=== PATIENT | male | born 1950 | race Caucasian/White ===

== ENCOUNTER 2021-12-09 13:31 | Inpatient (IN) | payer OTHER, BC ==
[~2021-12-09] VITALS: Ht 170.2 cm; Wt 77.2 kg
[2021-12-09] MEDS: ASCORBIC ACID 250 MG TAB PO SCH (09:00)
[2021-12-09] MEDS ORDERED: MORPHINE 2 MG/ML 1ML VIAL IV PRN ×2 (13:55→16:15)
[2021-12-09] MEDS ORDERED: BOOSTRIX/ADACEL VACCINE (DIPHTH/PERTUSS/ACELL/TETANUS) 0.5ML SYR IM.IMMUN ONE (14:00)
[2021-12-09 14:29] LABS: BASO % 0.3 % (0.0-1.0); EOS % 0.3 % (0.0-3.0); HEMATOCRIT 44.2 % (42.0-52.0); HEMOGLOBIN 14.6 g/dl (13.5-17.5); LYMPH % 12.5 % (24.0-44.0); MEAN CORPUSCULAR HEMOGLOBIN 30.9 pg (27.0-33.0); MEAN CORPUSCULAR VOLUME 93.4 fl (80.0-96.0); MONO # 0.7 10^3/uL (0.0-0.8); NEUTROPHILS # 5.8 10^3/uL (1.5-8.5); NEUTROPHILS % 74.7 % (36.0-66.0); PLATELET COUNT, AUTOMATED 208 10^3/uL (150-450); RED BLOOD COUNT 4.73 10^6/uL (4.30-6.10); WHITE BLOOD COUNT 7.8 10^3/uL (4.0-10.0)
[2021-12-09] MEDS ORDERED: ISOVUE-370 76% 100ML VIAL As Ordered ONE (14:30)
[2021-12-09 14:43] LABS: INR 1.05; PROTHROMBIN TIME 14.1 SECONDS (12.7-14.5)
[2021-12-09 14:44] LABS: PARTIAL THROMBOPLASTIN TIME 32.4 SECONDS (25.9-37.0)
[2021-12-09 15:03] LABS: ALBUMIN 4.3 GM/DL (3.2-5.2); ALT/SGPT 36 U/L (12-78); BILIRUBIN,DIRECT 0.2 MG/DL (0.0-0.2); BILIRUBIN,TOTAL 0.9 MG/DL (0.2-1.0); BLOOD UREA NITROGEN 16 MG/DL (7-18); CALCIUM LEVEL 9.1 MG/DL (8.8-10.2); CARBON DIOXIDE LEVEL 26 MEQ/L (21-32); CHLORIDE LEVEL 106 MEQ/L (98-107); CREATININE FOR GFR 0.86 MG/DL (0.70-1.30); ETHYL ALCOHOL (ETHANOL) < 0.003 % (0.000-0.010); GLOMERULAR FILTRATION RATE > 60.0 (>42); GLUCOSE, FASTING 102 MG/DL (70-100); POTASSIUM SERUM 4.1 MEQ/L (3.5-5.1); SODIUM LEVEL 138 MEQ/L (136-145); TOTAL PROTEIN 7.5 GM/DL (6.4-8.2)
[2021-12-09 15:05] LABS: CK-MB VALUE MASS 5.3 NG/ML (<3.6); MB/CK RELATIVE INDEX 2.09 (< OR =4)
[2021-12-09] MEDS ORDERED: NORCO, ANEXSIA 5/325MG TABLET (HYDROcodone/ACETAMINOPHEN) PO PRN (16:15)
[2021-12-09] MEDS ORDERED: ATOR1TAB21 PO (16:32)
[2021-12-09] MEDS ORDERED: ELIQ5TAB PO (16:32)
[2021-12-09] MEDS ORDERED: AMIO200T49 PO (16:32)
[2021-12-09] MEDS ORDERED: D-10TAB3 PO (16:32)
[2021-12-09] MEDS ORDERED: VITA250T4 PO (16:32)
[2021-12-09] MEDS ORDERED: HOME MED LIST COMPLETE! XX SCH (16:40)
[2021-12-09 17:34] LABS: RSV AMPLIFICATION NEGATIVE (NEGATIVE)
[2021-12-09 18:03] LABS: APPEARANCE, URINE MANUAL CLEAR (CLEAR); COLOR, URINE MANUAL LT YELLOW (YELLOW); GLUCOSE, URINE (UA) MANUAL NEGATIVE (NEGATIVE); KETONE, URINE MANUAL NEGATIVE (NEGATIVE); PROTEIN, URINE MANUAL NEGATIVE (NEGATIVE)
[2021-12-09 18:04] LABS: BILIRUBIN, URINE MANUAL NEGATIVE (NEGATIVE); BLOOD URINE MANUAL POSITIVE (NEGATIVE); LEUKOCYTE ESTERASE, URINE MAN NEGATIVE (NEGATIVE); NITRITE, URINE MANUAL NEGATIVE (NEGATIVE); UROBILINOGEN, URINE MANUAL NORMAL (NORMAL)
[2021-12-09] MEDS: NORCO, ANEXSIA 5/325MG TABLET (HYDROcodone/ACETAMINOPHEN) PO PRN (18:04)
[2021-12-09] MEDS: AMIODARONE 200 MG TAB (PACERONE) PO SCH (18:06)
[2021-12-09] MEDS: ATORVASTATIN 20 MG TAB PO SCH (18:06)
[2021-12-09 18:59] LABS: BACTERIA, URINE NONE SEEN; HYALINE CAST, URINE NONE SEEN /lpf (0-1); RBC, URINE 30-40 /hpf (0-3); SQUAMOUS EPITHELIAL CELL URINE NONE SEEN /hpf (SMALL AMT); WBC, URINE NONE SEEN /hpf (0-3)
[2021-12-09 21:50] VITALS: BP 128/63
[2021-12-09] MEDS: APIXABAN 5 MG TAB (ELIQUIS) PO SCH (23:49)
[2021-12-09] MEDS: SENOKOT S TAB PO SCH (23:49)
[2021-12-10] MEDS: NORCO, ANEXSIA 5/325MG TABLET (HYDROcodone/ACETAMINOPHEN) PO PRN ×4 (00:05→22:25)
[2021-12-10 06:00] VITALS: BP 127/63
[2021-12-10 06:27] LABS: HEMATOCRIT 40.8 % (42.0-52.0); HEMOGLOBIN 13.6 g/dl (13.5-17.5); MEAN CORPUSCULAR HEMOGLOBIN 30.9 pg (27.0-33.0); MEAN CORPUSCULAR HGB CONC 33.3 g/dl (32.0-36.5); MEAN CORPUSCULAR VOLUME 92.7 fl (80.0-96.0); PLATELET COUNT, AUTOMATED 177 10^3/uL (150-450); WHITE BLOOD COUNT 8.8 10^3/uL (4.0-10.0)
[2021-12-10 07:02] LABS: BLOOD UREA NITROGEN 15 MG/DL (7-18); CALCIUM LEVEL 8.6 MG/DL (8.8-10.2); CARBON DIOXIDE LEVEL 24 MEQ/L (21-32); CHLORIDE LEVEL 105 MEQ/L (98-107); CREATININE FOR GFR 0.72 MG/DL (0.70-1.30); GLOMERULAR FILTRATION RATE > 60.0 (>42); GLUCOSE, FASTING 86 MG/DL (70-100); MAGNESIUM LEVEL 2.2 MG/DL (1.8-2.4); PHOSPHORUS LEVEL 3.9 MG/DL (2.5-4.9); POTASSIUM SERUM 3.7 MEQ/L (3.5-5.1); SODIUM LEVEL 138 MEQ/L (136-145)
[2021-12-10] MEDS: PANTOPRAZOLE 40MG TAB (PROTONIX) PO SCH (09:51)
[2021-12-10] MEDS: ATORVASTATIN 20 MG TAB PO SCH (09:51)
[2021-12-10] MEDS: SENOKOT S TAB PO SCH ×2 (09:51→20:49)
[2021-12-10] MEDS: AMIODARONE 200 MG TAB (PACERONE) PO SCH (09:51)
[2021-12-10] MEDS: APIXABAN 5 MG TAB (ELIQUIS) PO SCH ×2 (09:51→20:49)
[2021-12-10] MEDS: ASCORBIC ACID 250 MG TAB PO SCH (09:51)
[2021-12-10] MEDS: ONDANSETRON 4MG 2ML VIAL IV PRN ×2 (09:57→22:25)
[2021-12-10 14:00] VITALS: BP_SYST 127; BP_SYST 131; BP_SYST 132; BP_DIAS 61; BP_DIAS 62
[2021-12-10 22:00] VITALS: BP 137/63
[2021-12-11 06:00] VITALS: BP 146/67
[2021-12-11] MEDS: AMIODARONE 200 MG TAB (PACERONE) PO SCH (09:56)
[2021-12-11] MEDS: APIXABAN 5 MG TAB (ELIQUIS) PO SCH ×2 (09:56→20:44)
[2021-12-11] MEDS: SENOKOT S TAB PO SCH ×2 (09:56→20:44)
[2021-12-11] MEDS: ASCORBIC ACID 250 MG TAB PO SCH (09:56)
[2021-12-11] MEDS: PANTOPRAZOLE 40MG TAB (PROTONIX) PO SCH (09:56)
[2021-12-11] MEDS: ONDANSETRON 4MG 2ML VIAL IV PRN (09:56)
[2021-12-11] MEDS: ATORVASTATIN 20 MG TAB PO SCH (09:56)
[2021-12-11] MEDS: NORCO, ANEXSIA 5/325MG TABLET (HYDROcodone/ACETAMINOPHEN) PO PRN (09:58)
[2021-12-11 14:00] VITALS: BP 117/46
[2021-12-11] MEDS: guaiFENesin ER 600 MG TAB PO SCH (20:44)
[2021-12-11 21:10] VITALS: BP 127/61
[2021-12-12 06:00] VITALS: BP 146/72
[2021-12-12] MEDS: guaiFENesin ER 600 MG TAB PO SCH (09:24)
[2021-12-12] MEDS: PANTOPRAZOLE 40MG TAB (PROTONIX) PO SCH (09:24)
[2021-12-12] MEDS: APIXABAN 5 MG TAB (ELIQUIS) PO SCH (09:24)
[2021-12-12] MEDS: AMIODARONE 200 MG TAB (PACERONE) PO SCH (09:24)
[2021-12-12] MEDS: SENOKOT S TAB PO SCH (09:24)
[2021-12-12] MEDS: ATORVASTATIN 20 MG TAB PO SCH (09:24)
[2021-12-12] MEDS: ASCORBIC ACID 250 MG TAB PO SCH (09:24)
== END 2021-12-12 14:47 | disposition home or self-care (01) | DRG 135 ==
LOC: EDBD 13:31 → M ED 13:31 → M ED INP 16:15 → ENRESERV 20:40 → M MSPAV 21:27
PROVIDERS: ADMIT Surgery; ATTEND Surgery
DX: S22.42XA Multiple fractures of ribs, left side, initial encounter for closed fracture (principal); I48.91 Unspecified atrial fibrillation; S52.572A Other intraarticular fracture of lower end of left radius, initial encounter for closed fracture; G47.33 Obstructive sleep apnea (adult) (pediatric); K21.9 Gastro-esophageal reflux disease without esophagitis; E78.5 Hyperlipidemia, unspecified; V53.5XXA Driver of pick-up truck or van injured in collision with car, pick-up truck or van in traffic accident, initial encounter; Y92.410 Unspecified street and highway as the place of occurrence of the external cause; Y93.89 Activity, other specified; Y99.8 Other external cause status; R42 Dizziness and giddiness; Z79.01 Long term (current) use of anticoagulants; Z79.899 Other long term (current) drug therapy; Z88.0 Allergy status to penicillin

== ENCOUNTER → 2021-12-15 | Outpatient (CLI) | payer OTHER, BC ==
[~2021-12-15] MED LIST: AMIO200T49 PO; ATOR1TAB21 PO; D-10TAB3 PO; ELIQ5TAB PO; VITA250T4 PO
== END ==
LOC: M SOG 14:47
PROVIDERS: ATTEND Orthopaedic Surgery
DX: Z47.89 Encounter for other orthopedic aftercare (principal)